=== PATIENT | male | born 1935 ===

== ENCOUNTER → 2020-04-01 08:43 | Outpatient (CLI) | payer MEDICARE, SELFPAY ==
[2020-04-01 10:51] LABS: Coronavirus 19 IgG Antibody Negative (Negative); Coronavirus 19 IgM Antibody Negative (Negative)
== END ==
PROVIDERS: Visit Provider Internal Medicine Gastroenterology
DX: Z01.818 Encounter for other preprocedural examination (principal)
CPT/HCPCS: 36415; 86328